=== PATIENT | male | born 1980 | race Caucasian/White ===

== ENCOUNTER 2023-12-06 12:59 | Emergency (ER) | payer OTHER, SELFPAY ==
[2023-12-06 13:01] VITALS: BP 140/81
--- NOTE | 2023-12-06 14:26 | ED.SKININJ ---
HPI-Injury
General
Chief Complaint: Skin Surface Trauma
Time Seen by Provider: 12/06/23 14:00
Travel History
Have you had any contact with someone who has COVID-19?: No
Do you have any symptoms of coronavirus? Fever > 100 degrees, chills, cough, shortness of breath, sore throat, loss of taste or smell, muscle aches, or headache?: No
History of Present Illness-Injury
Initial Injury comments:
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 He admits to a laceration with bleeding. He is able to move his finger but endorses pain when doing
so. Tetanus vaccination up-to-date. No injuries noted elsewhere.
Review of Systems
Review of Systems
All Other Systems: ROS reviewed and negative except as documented in HPI and ROS
Phy Exam
Physical Exam
Physical Exam:
GENERAL: Alert , in no apparent distress
EYE: pupils equal and reactive
NECK: Supple
NEUROLOGICAL: Alert and oriented, no focal neuro deficits
SKIN: Warm and dry, skin intact. Horizontal small approximately 1.5 cm in diameter linear laceration noted along the palmar aspect of the left third finger at the level of the PIP joint, there is no evidence of foreign body, there is full range of
motion of the affected finger, sensation and motor intact, pulses 2+ throughout, tendon function intact to resistance
MUSCULOSKELETAL: No edema, well perfused. There is a superficial
PSYCH: Normal and appropriate interaction.
Course
Orders/Labs/Results
Orders:
Orders
12/06/23 14:07
CR Finger(s)/thumb Min 2 Vw Lt Urgent
Comment:
Reason For Exam: lac, left third finger
Indicate Which Finger:: Middle Finger
Vital Signs
Initial and Last Documented VS:
Initial Vital Signs
Temp Pulse Resp BP Pulse Ox
96.8 F L 79 20 140/81 97
12/06/23 13:01 12/06/23 13:01 12/06/23 13:01 12/06/23 13:01 12/06/23 13:01
Last Documented Vital Signs
Temp Pulse Resp BP Pulse Ox
96.8 F L 79 20 140/81 97
12/06/23 13:01 12/06/23 13:01 12/06/23 13:01 12/06/23 13:01 12/06/23 13:01
Procedures
Laceration Closure
Left third finger:
Size of Wound in cm: 1.5
Description of Wound Edges: ragged
Preparation: cleaned with saline
Anesthesia: 1% Lidocaine (both digital block and direct infiltration, 7 mL in total)
Type of Closure: single layer closure
Skin Closure Material: 5-0 nylon
Number of sutures: 5
MDM/Problems Addressed
Differential Diagnosis Includes:
43-year-old male with past medical history of atrial fibrillation here today after he lacerated his left third finger. Overall, patient appears well. Laceration copiously irrigated and repaired, see procedure note for full details. Patient
tolerated procedure well. Recommend removal of sutures in 7 to 10 days. Discussed wound care/infection precautions. All questions answered. Stable for discharge.
*Critical Care Note
Total Time (30-74mins, 75-104mins- exclusive of procedures): Not Applicable
ED Attending Note
-
Portions of this chart may have been created with voice recognition software.� Occasional wrong word or��sound alike� substitutions may have occurred due to the inherent limitations of voice recognition software.
Discharge Plan
Departure
Patient Disposition: Home (Routine Discharge)
Date of Disposition: 12/06/23
Time of Disposition: 15:40
Patient with high blood pressure during this ER visit?: No
Condition: Good
Covid-19: Not Applicable
Discharge Problem:
Laceration of finger of left hand
Instructions: Laceration Repair With Stitches (DC)
Activity Restrictions/Additional Instructions:
You were seen today for evaluation of a finger laceration.
We obtained an x-ray which reveals no acute findings.
We irrigated and cleaned your wound and repaired this with 5 stitches.
Keep the wound dry for the first 24 hours. Afterwards, keep the wound covered with antibiotic ointment and a Band-Aid. You may wet the wound but do not soak in a pool or hot tub.
Have the stitches removed in 7 to 10 days. You may go to the urgent care or your family doctor to have these removed.
Watch out for signs of infection, including but not limited to, worsening pain, redness, drainage, pus, and/or fevers.
Return for any new, worsening, or concerning symptoms.
Interventions
Interventions:
*Risk Screen - Suicide Last Done: 12/06/23 13:01
*General Assessment Last Done: 12/06/23 13:01
*Neglect/Abuse Screening Last Done: 12/06/23 13:01
Discharge Date and Time
Print Language: ANGOLAN
== END 2023-12-06 16:31 | disposition home or self-care (01) ==
LOC: EMR 12:59
PROVIDERS: EMERGENCY PHYSICIAN Student in an Organized Health Care Education/Training Program
DX: S61.213A Laceration without foreign body of left middle finger without damage to nail, initial encounter (principal); W25.XXXA Contact with sharp glass, initial encounter
CPT/HCPCS: 99282; 12001; 73140